=== PATIENT | male | born 1945 | race Caucasian/White ===

== ENCOUNTER → 2018-07-11 | Outpatient (CLI) | payer OTHER ==
[~2018-07-11] MED LIST: REGADENOSON 0.4 MG/5 ML SYRINGE IV ONE
--- NOTE | 2018-07-11 12:16 | NM ---
EXAMINATION TYPE: NM stress lexiscan cardiolite DATE OF EXAM: 07/11/2018 COMPARISON: NONE HISTORY: 73-year-old male atherosclerotic heart disease, preoperative evaluation. History of hyperten kamlesh, prior catheterization, CABG, hypercholesterolemia, COPD, prior smoker. TECHNIQUE: After the intravenous administration of 10.47 mCi Tc 99m Sestamibi - Cardiolite resting S PECT images acquired 45 minutes post injection. The patient received 0.4mg Lexiscan, 25.6 mCi Tc 99m Sestamibi - Stress images obtained [address] injection FINDINGS: Review of stress and rest SPECT images demonstrates prominent GI activity adjacent to the mid to basa l inferoseptal wall. There is a moderate sized area of fixed perfusion defect along the mid to basal inferior wall and small to moderate sized area along the mid anterior wall. No convincing area of rev ersibility is identified. Gated analysis shows estimated left ventricular ejection fraction of 49 %. TID is calculated as 0.96, within normal limits. IMPRESSION: Fixed defects anterior and inferior [place]court could represent areas of prior infarcts. Clinically correla te. LVEF mildly diminished at 49%. No definite suspicious reversibility is seen.
--- NOTE | 2018-07-13 10:29 | EST ---
EXERCISE STRESS AGE: 73 SEX: M HT: 70" WT: 220 PROTOCOL: Lexiscan Cardiolite Stress Test. HEART RATE REST: 59 BLOOD PRESSURE REST: 124/75 MAXIMUM HEART RATE ACHIEVED: 68 MAXIMUM BLOOD PRESSURE: 126/50 85% MPHR: 127 100% MPHR: 148 INDICATIONS: Preoperative cardiac evaluation. CLINICAL INFORMATION: Baseline EKG shows sinus rhythm, poor R-wave progression. Patient was given Lexiscan as per protocol. Did not have chest pain or diagnostic ST-segment depression. CONCLUSIONS: 1. Negative stress test by EKG criteria. 2. Cardiolite portion of the stress test will be reported separately. MMODL / IJN: [id number] /
== END | disposition home or self-care (01) ==
LOC: RADNMMAIN 08:31
PROVIDERS: ATTEND Internal Medicine
DX: Z01.810 Encounter for preprocedural cardiovascular examination (principal); R94.39 Abnormal result of other cardiovascular function study; I25.10 Atherosclerotic heart disease of native coronary artery without angina pectoris
CPT/HCPCS: 93017; 78452; A9500; J2785